=== PATIENT | male | born 1975 ===

== ENCOUNTER 2018-07-13 11:14 | Day surgery (SDC) | payer OTHER ==
[2018-07-13] MEDS ORDERED: LR 1,000 ML IV ONE (11:40)
[2018-07-13] MEDS ORDERED: MIDAZOLAM 2 MG/2 ML VIAL IVP ONE (12:27)
--- NOTE | 2018-07-13 12:27 | PDGENHP ---
History & Physical Chief Complaint: barretts esophagus History of Present Illness: 43 year old male presents for evaluation of Barretts. Has sx of heartburn and on full dose PPI. Last EGD 6 years ago in [place] Pertinent Past, Social, Family History: PMHx: GERD, barretts,. PSurghx: nose. FaMhx: No esophageal cancer Relevant Physical Exam: HEENT: anicteric. CV; RRR+s1s2. Lungs: CTAB. Abd: soft, nt, + bs Cardiorespiratory Assessment: ASA 2
[2018-07-13] MEDS ORDERED: INDOMETHACIN 50 MG SUPP PR PRN (12:28)
--- NOTE | 2018-07-13 12:29 | PDANEPAE ---
ANE History of Present Illness 43 year old with barretts esophagus ANE Past Medical History - Cardiovascular History Hx Hypertension: Yes Hx Arrhythmias: No Hx Chest Pain: No Hx Coronary Artery / Peripheral Vascular Disease: No Hx CHF / Valvular Disease: No Hx Palpitations: No - Pulmonary History Hx COPD: No Hx Asthma/Reactive Airway Disease: No Hx Recent Upper Respiratory Infection: No Hx Oxygen in Use at Home: No Hx Sleep Apnea: No Sleep Apnea Screening Result - Last Documented: Negative - Neurologic History Hx Cerebrovascular Accident: No Hx Seizures: No Hx Dementia: No - Endocrine History Hx Diabetes: No - Renal History Hx Renal Disorders: No - Liver History Hx Hepatic Disorders: No - Neurological & Psychiatric Hx Hx Neurological and Psychiatric Disorders: Yes Neurological / Psychiatric History Comment: right foot numbness/tingling. 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 - GI History Hx Gastrointestinal Disorders: Yes Gastrointestinal History Comment: reflux, - Other Health History Other Health History: none - Chronic Pain History Chronic Pain: No - Surgical History Prior Surgeries: none ANE Review of Systems Review of systems is: negative Review of Systems: - Exercise capacity METS (RN): 4 METS ANE Patient History - Allergies Allergies/Adverse Reactions: morphine Allergy (Verified 06/18/18 14:50) Other-Enter Comments - Home Medications Home Medications: Lisinopril 06/18/18 [Last Taken 07/12/18] Multivitamins 06/18/18 [Last Taken 07/12/18] Omeprazole 06/18/18 [Last Taken 07/13/18] Prozac 10 MG (*) 06/18/18 [Last Taken 07/12/18] Quetiapine Fumarate 06/18/18 [Last Taken 07/13/18] lamoTRIgine [Lamotrigine] 07/13/18 [Last Taken 07/13/18] - NPO status NPO Since - Liquids (Date): 07/13/18 NPO Since - Liquids (Time): 06:00 NPO Since - Solids (Date): 07/12/18 NPO Since - Solids (Time): 18:00 - Anes Hx Anes Hx: post operative nausea - Smoking Hx Smoking Status: Former smoker - Family Anes Hx Family Hx Anesthesia Complications: none ANE Labs/Vital Signs - Vital Signs Blood Pressure: 114/81 Heart Rate: 94 Respiratory Rate: 14 O2 Sat (%): 94 Height: 170.18 cm Weight: 83.915 kg ANE Physical Exam - Airway Neck exam: FROM Mallampati Score: Class 1 Mouth exam: normal dental/mouth exam - Pulmonary Pulmonary: no respiratory distress - Cardiovascular Cardiovascular: regular rate and rhythym - ASA Status ASA Status: II ANE Anesthesia Plan Total IV Anesthesia: Yes
[2018-07-13] MEDS ORDERED: NS 500 ML IV SCH (12:30)
[2018-07-13] MEDS ORDERED: PROPOFOL/EMULSION 500 MG/50 ML BOTTLE IV ONE (12:39)
[2018-07-13] MEDS ORDERED: fentaNYL 100 MCG/2 ML INJ ONE (12:39)
[2018-07-13] MEDS ORDERED: NALOXONE HCL 0.4 MG/ML INJ IVP PRN (12:59)
[2018-07-13] MEDS ORDERED: fentaNYL 100 MCG/2 ML INJ IVP PRN (12:59)
[2018-07-13] MEDS ORDERED: PROMETHAZINE HCL 25 MG/ML INJ IVP PRN (12:59)
--- NOTE | 2018-07-13 13:00 | POSTANESTH ---
Post Anesthetic Evaluation Cardiovascular Status: Normal, Stable Respiratory Status: Normal, Stable, Requires Airway Assist Level of Consciousness/Mental Status: Can Participate in Eval, Alert and Oriented Pain Control: Adequate, Prn Tx Ordered Nausea/Vomiting Control: Adequate, Prn Tx Ordered Complications Possibly Related to Anesthesia: None Noted
--- NOTE | 2018-07-13 13:04 | GIREPORT ---
[facility] Surgical Services - Endoscopy Department Patient Name: Ronald Reilly Procedure Date: 07/13/2018 12:42 PM Patient Type: Outpatient Attending MD/ ER Physician: Pepito De Santiago MD Procedure: Upper GI endoscopy Indications: Heartburn, Morris's esophagus Patient Profile: 43 year old male presents for evaluation of heartburn/Morris's esophag us. Providers: Pepito De Santiago MD Medicines: Monitored Anesthesia Care Complications: No immediate complications. Estimated blood loss: Minimal. Description of Procedure: After obtaining informed consent, the endoscope was passed under direct vision. Throughout the procedure, the patient's blood pressure, pulse, and oxygen saturations were monitored continuously. The Endoscope was intro duced through the mouth, and advanced to the second part of duodenum. The [facility] er GI endoscopy was accomplished without difficulty. The patient tolerated th e procedure well. Findings: The Z-line was irregular with 2 tongues of columnar appearing epitheliu m extending about 2 cms above the GE junction. Biopsies were taken with a cold forceps for histology. A medium-sized hiatal hernia was present. Patchy mildly erythematous mucosa was found in the gastric body and in the gastric antrum. Biopsies were taken with a cold forceps for histology. The examined duodenum was normal. Estimated Blood Loss: Estimated blood loss was minimal. Post Op Diagnosis: - Z-line irregular. Biopsied. - Medium-sized hiatal hernia. - Erythematous mucosa in the gastric body and antrum. Biopsied. - Normal examined duodenum. Recommendation: - Discharge patient to home (with escort). - Resume previous diet. - Continue present medications. - Repeat upper endoscopy in 3 - 5 years for surveillance based on patho logy results. - Use a proton pump inhibitor PO. - Follow an antireflux regimen. Attending Participation: I personally performed the entire procedure. Pepito De Santiago MD Pepito De Santiago MD 07/13/2018 1:03:46 PM This report has been signed electronicallyPepito De Santiago MD Number of Addenda: 0 Note Initiated On: 07/13/2018 12:42 PM [email or web address]
[2018-07-13 13:20] VITALS: BP 123/83
== END 2018-07-13 13:49 | disposition home or self-care (01) ==
LOC: FSGY 11:14
PROVIDERS: ATTEND Internal Medicine Gastroenterology
PROC: 0DB48ZX Excision of Esophagogastric Junction, Via Natural or Artificial Opening Endoscopic, Diagnostic (ICD-10-PCS; principal; 2018-07-13 12:30)
PROC: 0DB68ZX Excision of Stomach, Via Natural or Artificial Opening Endoscopic, Diagnostic (ICD-10-PCS; principal; 2018-07-13 12:30)
DX: K22.70 Barrett's esophagus without dysplasia (principal); K44.9 Diaphragmatic hernia without obstruction or gangrene
CPT/HCPCS: J2250; J2704; J3010